=== PATIENT | male | born 1970 | race Caucasian/White ===

== ENCOUNTER 2017-12-01 11:49 | Emergency (ER) | payer SELFPAY ==
[~2017-12-01] VITALS: Ht 177.8 cm; Wt 74.8 kg
[~2017-12-01 11:49] MED LIST: PRD20T PO
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
[2017-12-01 12:38] VITALS: BP 105/91
== END 2017-12-01 12:37 | disposition left against medical advice (07) ==
LOC: EDUNIT# 11:49 → ER 11:51
DX: L50.9 Urticaria, unspecified (principal); F17.210 Nicotine dependence, cigarettes, uncomplicated
CPT/HCPCS: 99282